=== PATIENT | male | born 1990 | race African-American/Black ===

== ENCOUNTER 2020-11-27 06:02 | Emergency (ER) | payer OTHER ==
[~2020-11-27] VITALS: Ht 188 cm; Wt 104.3 kg
[2020-11-27 06:51] LABS: INFLUENZA A ANTIGEN Negative (Negative); INFLUENZA B ANTIGEN Negative (Negative)
[2020-11-27 07:29] VITALS: BP 138/69
== END 2020-11-27 07:31 | disposition home or self-care (01) ==
LOC: M.ERS 06:02
PROVIDERS: Emergency Medicine
DX: J06.9 Acute upper respiratory infection, unspecified (principal); Z20.822 Contact with and (suspected) exposure to COVID-19